=== PATIENT | female | born 1980 | race Caucasian/White ===

== ENCOUNTER → 2021-07-20 | Outpatient (CLI) | payer BC, OTHER ==
--- NOTE | 2021-07-20 09:44 | REP ---
INDICATION: COUGH COMPARISON: None. TECHNIQUE: PA and lateral. FINDINGS: The mediastinum and cardiothymic silhouette are normal. Increased perihilar markings suggest viral pneumonia and bronchiolitis without focal consolidation. No effusion, or pneumothorax. Skeletal structures are intact and normal for age. IMPRESSION: 1. Bronchiolitis suggested. 2. No focal consolidation. <Electronically signed by Zoltan Bunch > 07/20/21 0999
== END | disposition home or self-care (01) ==
LOC: M SOG 09:27
PROVIDERS: ATTEND Internal Medicine Pulmonary Disease
DX: R05 Cough (principal)

== ENCOUNTER → 2021-10-07 | Outpatient (REF) | payer BC, OTHER ==
[2021-10-07 17:04] LABS: HEMATOCRIT 40.8 % (36.0-47.0); HEMOGLOBIN 13.6 g/dl (12.0-15.5); MEAN CORPUSCULAR HEMOGLOBIN 29.4 pg (27.0-33.0); MEAN CORPUSCULAR HGB CONC 33.3 g/dl (32.0-36.5); MEAN CORPUSCULAR VOLUME 88.1 fl (80.0-96.0); PLATELET COUNT, AUTOMATED 292 10^3/uL (150-450); RED BLOOD COUNT 4.63 10^6/uL (4.00-5.40)
[2021-10-07 17:30] LABS: ALBUMIN 4.5 GM/DL (3.2-5.2); ALT/SGPT 41 U/L (12-78); BILIRUBIN,TOTAL 0.4 MG/DL (0.2-1.0); BLOOD UREA NITROGEN 10 MG/DL (7-18); CALCIUM LEVEL 9.3 MG/DL (8.5-10.1); CARBON DIOXIDE LEVEL 27 MEQ/L (21-32); CHLORIDE LEVEL 104 MEQ/L (98-107); CHOLESTEROL LEVEL 225 MG/DL (<200); CHOLESTEROL RISK RATIO 4.411 (<5); CREATININE FOR GFR 0.85 MG/DL (0.55-1.30); FREE T3 2.9 PG/ML (2.2-4.0); GLOMERULAR FILTRATION RATE > 60.0 (>58); GLUCOSE, FASTING 82 MG/DL (70-100); HDL CHOLESTEROL 51 MG/DL (>40); LDL CHOLESTEROL 150 MG/DL (<100); NON-HDL-C 174 MG/DL; POTASSIUM SERUM 4.2 MEQ/L (3.5-5.1); SODIUM LEVEL 138 MEQ/L (136-145); THYROXINE (T4) 9.1 UG/DL (4.5-12.0); TOTAL PROTEIN 7.8 GM/DL (6.4-8.2); TRIGLYCERIDES LEVEL 118 MG/DL (<150)
[2021-10-07 17:33] LABS: ESTRADIOL 48.4 PG/ML; FOLLICLE STIMULATING HORMONE 10.3 mIU/mL; VITAMIN B12 LEVEL 610 PG/ML (247-911)
== END ==
LOC: M LAB REF 16:35
DX: N95.1 Menopausal and female climacteric states (principal); R53.82 Chronic fatigue, unspecified; M85.9 Disorder of bone density and structure, unspecified; E03.9 Hypothyroidism, unspecified; M25.50 Pain in unspecified joint

== ENCOUNTER → 2021-10-10 | Outpatient (CLI) | payer BC, OTHER ==
--- NOTE | 2021-10-10 09:58 | REP ---
INDICATION: LOW BACK PAIN COMPARISON: None. TECHNIQUE: AP, lateral, coned-down views of the lumbar spine. FINDINGS: Three views of the lumbosacral spine demonstrate satisfactory alignment and lordosis without acute fracture / compression injury or subluxation. IMPRESSION: 1. No acute fracture / compression injury or subluxation. 2. No significant degenerative changes appreciated. <Electronically signed by Zoltan Bunch > 10/10/21 0985
== END ==
LOC: M SOG 09:09
PROVIDERS: ATTEND Orthopaedic Surgery
DX: M54.50 Low back pain, unspecified (principal)

== ENCOUNTER → 2021-12-09 | Outpatient (REF) | payer BC, OTHER | LOC: M WUC 15:46 | PROVIDERS: ATTEND Physician Assistant | DX: R30.0 Dysuria (principal) ==

== ENCOUNTER → 2021-12-26 | Outpatient (CLI) | payer BC, OTHER | LOC: M RAD 11:58 | DX: R31.9 Hematuria, unspecified (principal) ==

== ENCOUNTER → 2022-01-04 | Outpatient (CLI) | payer BC, OTHER | LOC: M PLAIMG 11:15 | PROVIDERS: ATTEND Urology | DX: N20.0 Calculus of kidney (principal) ==

== ENCOUNTER → 2022-06-19 | Outpatient (CLI) | payer BC, OTHER | LOC: M WHC 11:14 | DX: M79.604 Pain in right leg (principal) ==

== ENCOUNTER → 2023-08-21 | Outpatient (CLI) | payer BC, OTHER | LOC: M SOG 13:53 | PROVIDERS: ATTEND Internal Medicine Pulmonary Disease | DX: J20.9 Acute bronchitis, unspecified (principal) ==

== ENCOUNTER → 2024-01-03 | Outpatient (CLI) | payer BC, OTHER | LOC: M WHC 09:51 | PROVIDERS: ATTEND Specialist | DX: N83.201 Unspecified ovarian cyst, right side (principal); N83.202 Unspecified ovarian cyst, left side ==

== ENCOUNTER → 2024-08-25 | Outpatient (CLI) | payer BC ==
[~2024-08-25] MED LIST: CARV40CA PO; GABA-284 PO; LOSA50TA5 PO; OMEP40CA4 PO
== END ==
LOC: M WHC 12:50
PROVIDERS: ATTEND Specialist
DX: N83.201 Unspecified ovarian cyst, right side (principal); Z90.79 Acquired absence of other genital organ(s)

== ENCOUNTER → 2024-10-01 | Outpatient (CLI) | payer BC | LOC: M WHC 08:13 | PROVIDERS: ATTEND Specialist | DX: N83.201 Unspecified ovarian cyst, right side (principal) ==

== ENCOUNTER → 2025-01-29 | Outpatient (CLI) | payer BC | LOC: M WUC 11:28 | PROVIDERS: ATTEND Internal Medicine Pulmonary Disease | DX: R05.9 Cough, unspecified (principal) ==

== ENCOUNTER → 2025-02-04 | Outpatient (CLI) | payer BC | LOC: M SOG 13:21 | PROVIDERS: ATTEND Physician Assistant | DX: M79.671 Pain in right foot (principal) ==